=== PATIENT | female | born 1960 | race Caucasian/White ===

== ENCOUNTER → 2017-05-28 | Outpatient (CLI) | payer OTHER ==
[2017-05-28 08:29] LABS: ALBUMIN 3.8 g/dL (3.4-5.0); ALBUMIN/GLOBULIN RATIO 0.9 (1.0-1.7); GFR 57.4; POTASSIUM 4.2 mmol/L (3.5-5.1); TOTAL BILIRUBIN 0.5 mg/dL (0.2-1.0); TOTAL PROTEIN 7.9 g/dL (6.4-8.2)
[2017-05-28 09:54] LABS: BASO % 0 % (0-3); EOS % 1 % (0-3); HEMATOCRIT 40.9 % (36.0-47.0); HEMOGLOBIN 13.6 g/dL (12.0-15.5); LYMPH # 1.2 x10^3/uL (1.0-4.8); LYMPH % 23 % (24-48); MEAN CORPUSCULAR HEMOGLOBIN 32 pg (25-35); MEAN CORPUSCULAR HGB CONC 33 g/dL (31-37); MEAN CORPUSCULAR VOLUME 95 fL (79-100); MONO # 0.3 x10^3/uL (0.0-1.1); MONO % 6 % (0-9); NEUT # 3.7 x10^3uL (1.8-7.7); NEUT % 70 % (31-73); PLATELET COUNT 245 x10^3/uL (140-400); RED BLOOD COUNT 4.31 x10^6/uL (3.50-5.40); RED CELL DISTRIBUTION WIDTH 12.3 % (11.5-14.5); WHITE BLOOD COUNT 5.3 x10^3/uL (4.0-11.0)
== END | disposition home or self-care (01) ==
LOC: LAB 07:57
PROVIDERS: ATTEND Family Medicine
DX: E78.00 Pure hypercholesterolemia, unspecified (principal)
CPT/HCPCS: 36415; 80053; 80061; 82150; 83690; 85027

== ENCOUNTER → 2017-05-29 | Outpatient (CLI) | payer OTHER ==
[~2017-05-29] MED LIST: CRESTOR20 MG PO; DOXY100C2 PO; ESCITALOPRAM OX10 MG PO; ESTR1TAB15 PO
--- NOTE | 2017-05-29 08:37 | RAD ---
INDICATION: Abdominal pain. COMPARISON: None. TECHNIQUE: Grayscale and color ultrasound images obtained through the abdomen. FINDINGS: Aorta/IVC: Partially visualized without gross aneurysm. Pancreas: Visualized portions unremarkable. Liver: Echogenic mass within measuring 10 x 8 mm Gallbladder: No definite gallstones. Wall measures up to 3-4 mm Common Bile Duct: Not dilated. Right Kidney: No hydronephrosis. Left Kidney: No hydronephrosis. Spleen: Unremarkable. IMPRESSION: No bile duct dilation or gallstones. The gallbladder is partially contracted with the gallbladder wall borderline in thickness in some regions. Echogenic lesion within the liver. This has a nonspecific appearance and can be seen with causes such as hemangioma but other more worrisome liver lesions are also within the differential. A follow-up could be obtained to ensure no growth.
== END | disposition home or self-care (01) ==
LOC: US 07:30
PROVIDERS: ATTEND Family Medicine
DX: K76.9 Liver disease, unspecified (principal); D18.00 Hemangioma unspecified site
CPT/HCPCS: 76700

== ENCOUNTER → 2017-05-30 | Outpatient (CLI) | payer OTHER ==
[~2017-05-30] VITALS: Ht 162.6 cm; Wt 72.6 kg
[2017-05-30] MEDS: SINCALIDE 1.5 MCG in IV NORMAL SALINE 50ML 30 ML IV ONE (13:57)
--- NOTE | 2017-05-30 15:26 | RAD ---
EXAM: Nuclear hepatobiliary scan with ejection fraction. HISTORY: Right upper quadrant pain. TECHNIQUE: Serial static images are obtained of the liver and biliary system in a frontal projection following IV administration of 5.5 mCi of technetium-99m Choletec. After filling of the gallbladder, 1.5 mcg of sincalide were infused over 30 minutes and dynamic imaging continued over this period. The gallbladder ejection fraction was calculated. FINDINGS: There is prompt hepatic clearance of tracer from the blood pool. There is homogeneous distribution throughout the liver. There is normal filling of the gallbladder and normal emptying into the biliary system and small bowel. The gallbladder ejection fraction is 93.5% (normal >35%). IMPRESSION: 1. Normal gallbladder ejection fraction.
== END | disposition home or self-care (01) ==
LOC: NM 12:37
PROVIDERS: ATTEND Family Medicine
DX: R10.11 Right upper quadrant pain (principal); R11.0 Nausea
CPT/HCPCS: 78226; 96374; 96375; A9537; J2805

== ENCOUNTER → 2017-05-31 | Outpatient (CLI) | payer OTHER ==
[~2017-05-31] MED LIST changes: +IOHEXOL 240 MG/ML 50ML VIAL. PO ONE
[2017-05-31] MEDS: IOHEXOL 300 MG/ML 75 ML VIAL. IV ONE (13:00)
--- NOTE | 2017-05-31 15:04 | RAD ---
INDICATION: Right upper quadrant pain COMPARISON: Ultrasound 05/29/2017 TECHNIQUE: Axial CT images were obtained through the abdomen and pelvis with intravenous contrast. Coronal reformations were processed. FINDINGS: Coronary artery calcific atherosclerosis partially visualized. Mild distention distal esophagus versus tiny hiatal hernia. Calcific atherosclerosis throughout the vasculature, moderate. No intrahepatic bile duct dilation. Low attenuation adjacent to falciform ligament. Subcentimeter low-attenuation lesion right lobe of liver adjacent to gallbladder. Gallbladder is partially contracted. No peripancreatic edema. Spleen unremarkable. No hydronephrosis. Bladder is largely decompressed. No definite periappendiceal inflammation. No dilated loops of bowel to suggest obstruction. Degenerative changes spine. IMPRESSION: 1. No evidence of bowel obstruction, hydronephrosis or appendicitis. 2. Low-attenuation lesion of the liver which is too small to characterize on this exam. PQRS Compliance Statement: One or more of the following individualized dose reduction techniques were utilized for this examination: 1. Automated exposure control 2. Adjustment of the mA and/or kV according to patient size 3. Use of iterative reconstruction technique
== END | disposition home or self-care (01) ==
LOC: CT 10:18
PROVIDERS: ATTEND Family Medicine
DX: R10.11 Right upper quadrant pain (principal); I25.10 Atherosclerotic heart disease of native coronary artery without angina pectoris; K76.9 Liver disease, unspecified
CPT/HCPCS: 74177; Q9966

== ENCOUNTER → 2017-11-22 | Outpatient (CLI) | payer OTHER ==
[~2017-11-22] MED LIST changes: -IOHEXOL 240 MG/ML 50ML VIAL. PO ONE
[2017-11-22 07:56] LABS: ALBUMIN 3.7 g/dL (3.4-5.0); CREATININE 0.9 mg/dL (0.6-1.0); GFR 64.8; POTASSIUM 4.1 mmol/L (3.5-5.1); TOTAL BILIRUBIN 0.3 mg/dL (0.2-1.0); TOTAL PROTEIN 7.5 g/dL (6.4-8.2)
== END | disposition home or self-care (01) ==
LOC: LAB 07:31
PROVIDERS: ATTEND Family Medicine
DX: E78.4 Other hyperlipidemia (principal)
CPT/HCPCS: 36415; 80053; 80061

== ENCOUNTER → 2018-02-10 | Outpatient (CLI) | payer OTHER ==
--- NOTE | 2018-02-10 11:20 | RAD ---
Left wrist, 4 views, 02/10/2018: History: Left wrist contusion No fracture or dislocation is identified. There is a small degenerative type cyst in the lunate. There is mild soft tissue swelling. IMPRESSION: No acute bony abnormality is detected.
== END | disposition home or self-care (01) ==
LOC: RAD 09:50
PROVIDERS: ATTEND Family Medicine
DX: S60.212D Contusion of left wrist, subsequent encounter (principal); X58.XXXD Exposure to other specified factors, subsequent encounter
CPT/HCPCS: 73110

== ENCOUNTER → 2018-05-28 | Outpatient (CLI) | payer OTHER ==
[2018-05-28 08:38] LABS: ALBUMIN 3.6 g/dL (3.4-5.0); ALBUMIN/GLOBULIN RATIO 0.9 (1.0-1.7); CALCIUM 9.2 mg/dL (8.5-10.1); CREATININE 0.9 mg/dL (0.6-1.0); GFR 64.5; POTASSIUM 3.9 mmol/L (3.5-5.1); TOTAL BILIRUBIN 0.4 mg/dL (0.2-1.0); TOTAL PROTEIN 7.5 g/dL (6.4-8.2)
== END | disposition home or self-care (01) ==
LOC: LAB 08:03
PROVIDERS: ATTEND Family Medicine
DX: E78.4 Other hyperlipidemia (principal)
CPT/HCPCS: 36415; 80053; 80061

== ENCOUNTER → 2018-09-03 | Outpatient (CLI) | payer OTHER ==
--- NOTE | 2018-09-03 13:47 | RAD ---
DATE: 09/03/2018 EXAM: MAMMO KADEN SCREENING BILATERAL HISTORY: Routine screening COMPARISON: 11/30/2014 This study was interpreted with the benefit of Computerized Aided Detection (CAD). Breast Density: HETERO The breast parenchyma is heterogenously dense, which could reduce sensitivity of mammography. Breast parenchyma level C. FINDINGS: 2-D and 3-D tomosynthesis imaging was performed in CC and MLO projections. No new or enlarging breast densities are seen. Scattered microcalcifications are again noted in both breasts. The distribution suggests a benign etiology. Small to medium sized lymph nodes are present in both axillary regions. The largest of these on both sides measure approximately 11 mm in short axis dimension. More these are demonstrated on the current exam, likely due to technical factors. Clinical surveillance is suggested. IMPRESSION: There is no mammographic evidence of malignancy in either breast. BI-RADS CATEGORY: 2 BENIGN FINDING(S) RECOMMENDED FOLLOW-UP: 12M 12 MONTH FOLLOW-UP PQRS compliance statement: Patient information was entered into a reminder system with a target due date for the next mammogram. Mammography is a sensitive method for finding small breast cancers, but it does not detect them all and is not a substitute for careful clinical examination. A negative mammogram does not negate a clinically suspicious finding and should not result in delay in biopsying a clinically suspicious abnormality. "Our facility is accredited by the [employer] Mammography [employer]."
== END | disposition home or self-care (01) ==
LOC: MAMMO 08:50
PROVIDERS: ATTEND Family Medicine
DX: Z12.31 Encounter for screening mammogram for malignant neoplasm of breast (principal)
CPT/HCPCS: 77063; 77067

== ENCOUNTER → 2019-06-02 | Outpatient (CLI) | payer OTHER ==
[2019-06-02 10:05] LABS: BASO % 0 % (0-3); EOS # 0.1 x10^3/uL (0.0-0.7); EOS % 1 % (0-3); HEMATOCRIT 41.8 % (36.0-47.0); HEMOGLOBIN 14.1 g/dL (12.0-15.5); LYMPH # 1.4 x10^3/uL (1.0-4.8); LYMPH % 31 % (24-48); MEAN CORPUSCULAR HEMOGLOBIN 32 pg (25-35); MEAN CORPUSCULAR HGB CONC 34 g/dL (31-37); MEAN CORPUSCULAR VOLUME 94 fL (79-100); MONO # 0.3 x10^3/uL (0.0-1.1); MONO % 7 % (0-9); NEUT # 2.9 x10^3uL (1.8-7.7); NEUT % 61 % (31-73); PLATELET COUNT 280 x10^3/uL (140-400); RED BLOOD COUNT 4.46 x10^6/uL (3.50-5.40); RED CELL DISTRIBUTION WIDTH 12.6 % (11.5-14.5); WHITE BLOOD COUNT 4.7 x10^3/uL (4.0-11.0)
[2019-06-02 10:18] LABS: BACTERIA,URINE 0 /HPF (0-FEW); BILIRUBIN,URINE NEG (NEG); CLARITY,URINE HAZY; COLOR,URINE YELLOW; GLUCOSE,URINE NEG (NEG); NITRITE,URINE NEG (NEG); RBC,URINE OCC /HPF (0-2); SQUAMOUS EPITHELIAL CELL,UR OCC /LPF; UROBILINOGEN,URINE 0.2 mg/dL (0.2 mg/dL); WBC,URINE OCC /HPF (0-4)
[2019-06-02 10:19] LABS: ALBUMIN 4.2 g/dL (3.4-5.0); CREATININE 0.9 mg/dL (0.6-1.0); DIRECT BILIRUBIN 0.1 mg/dL (0.0-0.2); GFR 64.3; POTASSIUM 4.2 mmol/L (3.5-5.1); TOTAL BILIRUBIN 0.3 mg/dL (0.2-1.0); TOTAL PROTEIN 8.1 g/dL (6.4-8.2)
[2019-06-02 13:44] LABS: THYROID STIM HORMONE (TSH) 2.474 uIU/mL (0.358-3.740)
== END | disposition home or self-care (01) ==
LOC: LAB 09:41
PROVIDERS: ATTEND Family Medicine
DX: E78.01 Familial hypercholesterolemia (principal)
CPT/HCPCS: 36415; 80048; 80061; 80076; 81001; 82306; 82607; 83540; 83550; 84443; 85025

== ENCOUNTER → 2019-09-10 | Outpatient (CLI) | payer OTHER ==
--- NOTE | 2019-09-10 14:40 | RAD ---
DATE: 09/10/2019 1:22 PM EXAM: MAMMO KADEN SCREENING BILATERAL HISTORY: Screening mammogram COMPARISON: September 03, 2018. Bilateral CC and MLO views of the breasts were performed. Bilateral breast tomosynthesis was performed in CC and MLO projections. This study was interpreted with the benefit of Computerized Aided Detection (CAD). FINDINGS: Breast Density: SCATTERED The breast parenchyma shows scattered fibroglandular densities. Breast parenchyma level B Increased well-circumscribed mass within the right breast 12:00 position posterior depth approximately 5.3 cm from the nipple measures 0.7 cm. No left breast suspicious masses, microcalcifications or architectural distortion is present to suggest malignancy in either breast. The visualized axillae are unremarkable. IMPRESSION: Increased right breast mass 12:00 position. Recommend targeted right breast ultrasound to further evaluate. BI-RADS CATEGORY: 0 INCOMPLETE: NEEDS ADDITIONAL IMAGING EVALUATION AND/OR PRIOR MAMMOGRAMS FOR COMPARISON. RECOMMENDED FOLLOW-UP: ADD ADDITIONAL IMAGING The patient will be contacted to return for additional imaging and a supplemental report will follow. PQRS compliance statement: Patient information was entered into a reminder system. Mammography is a sensitive method for finding small breast cancers, but it does not detect them all and is not a substitute for careful clinical examination. A negative mammogram does not negate a clinically suspicious finding and should not result in delay in biopsying a clinically suspicious abnormality. "Our facility is accredited by the [employer] Mammography Program."
== END | disposition home or self-care (01) ==
LOC: MAMMO 12:33
PROVIDERS: ATTEND Family Medicine
DX: Z12.31 Encounter for screening mammogram for malignant neoplasm of breast (principal); N63.12 Unspecified lump in the right breast, upper inner quadrant
CPT/HCPCS: 77063; 77067

== ENCOUNTER → 2019-09-11 | Outpatient (CLI) | payer OTHER ==
--- NOTE | 2019-09-11 10:38 | RAD ---
DATE: 09/11/2019 10:25 AM EXAM: BREAST RIGHT HISTORY: Right breast abnormal mammogram COMPARISON: September 10, 2019 and September 03, 2018 mammograms. Ultrasound December 05, 2009. Targeted ultrasound of the right breast real-time. FINDINGS: Smoothly marginated right breast hypoechoic lesion 12:00 position 5 cm from the nipple measures approximately 0.5 x 0.4 x 0.7 cm. No posterior shadowing. Of note prior ultrasounds demonstrate similar-appearing lesions within the right breast. IMPRESSION: Hypoechoic smoothly marginated right breast mass, likely complicated cyst. BI-RADS CATEGORY: 3 PROBABLY BENIGN FINDING(S)-SHORT INTERVAL FOLLOW-UP SUGGESTED RECOMMENDED FOLLOW-UP: 6M 6 MONTH FOLLOW-UP. Recommend right breast mammographic views and right breast ultrasound. PQRS compliance statement: Patient information was entered into a reminder system with a target due date 6 months for the next right breast mammogram and ultrasound. Mammography is a sensitive method for finding small breast cancers, but it does not detect them all and is not a substitute for careful clinical examination. A negative mammogram does not negate a clinically suspicious finding and should not result in delay in biopsying a clinically suspicious abnormality. "Our facility is accredited by the [employer] Mammography [employer]."
== END | disposition home or self-care (01) ==
LOC: US 09:52
PROVIDERS: ATTEND Family Medicine
DX: N64.89 Other specified disorders of breast (principal); N63.10 Unspecified lump in the right breast, unspecified quadrant
CPT/HCPCS: 76641

== ENCOUNTER → 2019-12-14 | Outpatient (CLI) | payer OTHER ==
--- NOTE | 2019-12-14 18:17 | RAD ---
PROCEDURE: KNEE RIGHT 3V STUDY DATE: 12/14/2019 CLINICAL INDICATION / HISTORY: Right knee pain. TECHNIQUE: AP, lateral, and oblique views of the right knee. COMPARISON: None FINDINGS: The osseous structures are intact. The articular surfaces are smooth. The joint space is maintained. No intra-articular loose bodies. The alignment is within normal limits. The soft tissues are unremarkable. No obvious joint effusion. No radio-opaque foreign bodies are identified. IMPRESSION: No fracture or dislocation is identified. Electronically signed by: Frank Mora MD (12/14/2019 6:15 PM) [facility]
--- NOTE | 2019-12-15 07:53 | RAD ---
EXAM: CT right knee without IV contrast INDICATION: Right knee pain, mostly around the patellar region. TECHNIQUE: All CT scans performed at this facility utilize dose optimization techniques as appropriate to the exam, including the following: Automated exposure control and adjustment of the mA and/or KV according to patient size (this includes techniques or standardized protocols for targeted exams where dose is indication/reason for exam). COMPARISON: Right knee x-rays of December 14, 2019 FINDINGS: Osseous mineralization is normal with no fracture or aggressive appearing osseous lesions apparent. Alignment is notable for mild lateral patellar subluxation. Tibial tuberosity to trochlear groove (TT -TG) distance measures 1.6 cm. A benign bone island is present in the medial tibial tuberosity. No subchondral cystic changes apparent. The joint spaces are preserved and no joint effusion or loose bodies are apparent. Although soft tissue detail is limited on CT, but the ACL and PCL appear intact. The MCL and LCL also appear unremarkable. There is normal muscle bulk with no fatty infiltration or discrete soft tissue mass. IMPRESSION: Mild lateral patellar subluxation with a borderline increased tibial tuberosity to trochlear groove distance, at risk for patellar tracking abnormality. No significant degenerative changes, fracture, joint effusion or loose body. More detailed evaluation of articular cartilage and other soft tissue structures can be pursued with MRI as clinically warranted. Electronically signed by: Frank Mora MD (12/15/2019 7:50 AM) [facility]
== END | disposition home or self-care (01) ==
LOC: RAD 15:39
PROVIDERS: ATTEND Family Medicine
DX: S83.011A Lateral subluxation of right patella, initial encounter (principal); X58.XXXA Exposure to other specified factors, initial encounter; Y93.89 Activity, other specified; Y92.89 Other specified places as the place of occurrence of the external cause; Y99.8 Other external cause status
CPT/HCPCS: 73562; 73700

== ENCOUNTER → 2020-03-17 | Outpatient (CLI) | payer OTHER ==
--- NOTE | 2020-03-17 15:32 | RAD ---
DATE: 03/17/2020 2:00 PM EXAM: MAMMO KADEN DIAG RT HISTORY: Six-month follow-up probably benign right breast cyst initially recalled from screening. COMPARISON: Right breast ultrasound of 09/11/2019 and bilateral screening mammograms of 09/10/2019 and 09/03/2018. Right CC and MLO views of the breasts were obtained, in addition to magnification CC and ML views. Bilateral breast tomosynthesis was performed in CC and MLO projections. This study was interpreted with the benefit of Computerized Aided Detection (CAD). FINDINGS: Breast Density: HETERO The breast parenchyma Is heterogeneously dense, which could reduce sensitivity of mammography. Breast parenchyma level C Additional views right breast showed layering calcifications of the bottom of the cyst recalled from screening, consistent with benign milk of calcium additional scattered benign calcifications are noted with no dominant mass, suspicious calcifications or architectural distortion. Given the benign findings on mammography, additional imaging by ultrasound was deferred in favor of a return to screening which the patient will be due for in another 6 months. . IMPRESSION: Benign findings on mammography. BI-RADS CATEGORY: 2 BENIGN FINDING(S) RECOMMENDED FOLLOW-UP: 6M 6 MONTH FOLLOW-UP Annual screening mammography is recommended, unless clinically indicated sooner based on symptoms or change in physical exam. PQRS compliance statement: Patient information was entered into a reminder system with a target due date September 11, 2020 for the next mammogram. Mammography is a sensitive method for finding small breast cancers, but it does not detect them all and is not a substitute for careful clinical examination. A negative mammogram does not negate a clinically suspicious finding and should not result in delay in biopsying a clinically suspicious abnormality. "Our facility is accredited by the [employer] Mammography [employer]." BI-RADS 2 -- benign findings
== END | disposition home or self-care (01) ==
LOC: MAMMO 13:49
PROVIDERS: ATTEND Family Medicine
DX: R92.1 Mammographic calcification found on diagnostic imaging of breast (principal); N60.01 Solitary cyst of right breast
CPT/HCPCS: 77065; G0279; 77061

== ENCOUNTER → 2020-05-31 | Outpatient (CLI) | payer OTHER ==
[2020-05-31 08:42] LABS: BASO % 1 % (0-3); EOS # 0.1 x10^3/uL (0.0-0.7); EOS % 2 % (0-3); HEMATOCRIT 39.6 % (36.0-47.0); HEMOGLOBIN 13.4 g/dL (12.0-15.5); LYMPH # 1.9 x10^3/uL (1.0-4.8); LYMPH % 34 % (24-48); MEAN CORPUSCULAR HEMOGLOBIN 32 pg (25-35); MEAN CORPUSCULAR HGB CONC 34 g/dL (31-37); MEAN CORPUSCULAR VOLUME 94 fL (79-100); MONO # 0.4 x10^3/uL (0.0-1.1); MONO % 8 % (0-9); NEUT # 3.2 x10^3uL (1.8-7.7); NEUT % 56 % (31-73); PLATELET COUNT 272 x10^3/uL (140-400); RED BLOOD COUNT 4.21 x10^6/uL (3.50-5.40); RED CELL DISTRIBUTION WIDTH 13.1 % (11.5-14.5); WHITE BLOOD COUNT 5.7 x10^3/uL (4.0-11.0)
[2020-05-31 08:58] LABS: ALBUMIN 3.9 g/dL (3.4-5.0); ALBUMIN/GLOBULIN RATIO 1.1 (1.0-1.7); CALCIUM 9.2 mg/dL (8.5-10.1); GFR 56.7; POTASSIUM 3.4 mmol/L (3.5-5.1); TOTAL BILIRUBIN 0.3 mg/dL (0.2-1.0); TOTAL PROTEIN 7.3 g/dL (6.4-8.2)
[2020-05-31 15:55] LABS: THYROID STIM HORMONE (TSH) 2.963 uIU/mL (0.358-3.740)
== END | disposition home or self-care (01) ==
LOC: LAB 08:20
PROVIDERS: ATTEND Family Medicine
DX: E78.5 Hyperlipidemia, unspecified (principal)
CPT/HCPCS: 36415; 80053; 80061; 82306; 82607; 83540; 83550; 84443; 85025

== ENCOUNTER → 2021-01-09 | Outpatient (CLI) | payer OTHER ==
[2021-01-09 09:30] LABS: BASO % 1 % (0-3); EOS # 0.1 x10^3/uL (0.0-0.7); EOS % 2 % (0-3); HEMATOCRIT 40.5 % (36.0-47.0); HEMOGLOBIN 13.5 g/dL (12.0-15.5); LYMPH # 1.5 x10^3/uL (1.0-4.8); LYMPH % 30 % (24-48); MEAN CORPUSCULAR HEMOGLOBIN 32 pg (25-35); MEAN CORPUSCULAR HGB CONC 34 g/dL (31-37); MEAN CORPUSCULAR VOLUME 95 fL (79-100); MONO # 0.3 x10^3/uL (0.0-1.1); MONO % 7 % (0-9); NEUT # 2.9 x10^3uL (1.8-7.7); NEUT % 61 % (31-73); PLATELET COUNT 270 x10^3/uL (140-400); RED BLOOD COUNT 4.26 x10^6/uL (3.50-5.40); RED CELL DISTRIBUTION WIDTH 13.1 % (11.5-14.5); WHITE BLOOD COUNT 4.8 x10^3/uL (4.0-11.0)
[2021-01-09 09:43] LABS: ALBUMIN 3.8 g/dL (3.4-5.0); ALBUMIN/GLOBULIN RATIO 1.1 (1.0-1.7); CALCIUM 9.3 mg/dL (8.5-10.1); CREATININE 0.9 mg/dL (0.6-1.0); GFR 63.9; POTASSIUM 4.1 mmol/L (3.5-5.1); TOTAL BILIRUBIN 0.3 mg/dL (0.2-1.0); TOTAL PROTEIN 7.3 g/dL (6.4-8.2)
[2021-01-09 09:52] LABS: BILIRUBIN,URINE NEG (NEG); CLARITY,URINE CLEAR; COLOR,URINE YELLOW; GLUCOSE,URINE NEG (NEG); NITRITE,URINE NEG (NEG); UROBILINOGEN,URINE 0.2 mg/dL (0.2 mg/dL)
[2021-01-09 09:53] LABS: BACTERIA,URINE 0 /HPF (0-FEW); RBC,URINE OCC /HPF (0-2); SQUAMOUS EPITHELIAL CELL,UR FEW /LPF
[2021-01-09 20:28] LABS: THYROID STIM HORMONE (TSH) 1.71 uIU/mL (0.358-3.740)
== END ==
LOC: LAB 09:01
PROVIDERS: ATTEND Family Medicine
DX: R29.890 Loss of height (principal); K63.5 Polyp of colon; E55.9 Vitamin D deficiency, unspecified; E78.01 Familial hypercholesterolemia; E03.9 Hypothyroidism, unspecified; R35.1 Nocturia
CPT/HCPCS: 36415; 80053; 80061; 81001; 82306; 84443; 85025; 87086

== ENCOUNTER → 2021-01-20 | Outpatient (CLI) | payer OTHER ==
--- NOTE | 2021-01-20 10:59 | RAD ---
EXAM: Bilateral digital screening mammogram with tomosynthesis. HISTORY: 60-year-old female presents for screening mammography. TECHNIQUE: Full-field digital craniocaudal and mediolateral oblique 2D and 3D tomosynthesis images of both breasts are obtained for evaluation. Computer aided detection was applied. COMPARISON: 09/10/2019 BREAST PARENCHYMAL DENSITY: Level C - Heterogeneously dense. FINDINGS: There is no new suspicious mass, microcalcification or region of architectural distortion. There are multiple stable areas of nodularity and asymmetry within both breasts. There are few benign calcifications. IMPRESSION: BI-RADS Category 2: Benign finding(s). RECOMMENDATION: Annual mammography is recommended. If your mammogram demonstrates that you have dense breast tissue, which could hide abnormalities, and if you have other risk factors for breast cancer that have been identified, you might benefit from s upplemental screening tests that may be suggested by your ordering physician. Dense breast tissue, i n and of itself, is a relatively common condition. This information is not provided to cause undue c oncern, but rather to raise your awareness and to promote discussion with your physician regarding th e presence of other risk factors, in addition to dense breast tissue. A report of your mammography re sults will be sent to you and your physician. You should contact your physician if you have any ques tions or concerns regarding this report. Mammography is a sensitive method for finding small breast cancers, but it does not detect them all a nd is not a substitute for careful clinical examination. A negative mammogram does not negate a clin ically suspicious finding and should not result in delay in biopsying a clinically suspicious abnorma lity. PQRS compliance statement - Patient information was entered into a reminder system with a target due date for the next mammogram. "Our facility is accredited by the [employer] Mammography Program." Electronically signed by: Marlene Daly MD (01/20/2021 10:56 AM) [id number]
== END ==
LOC: MAMMO 09:56
PROVIDERS: ATTEND Family Medicine
DX: Z12.31 Encounter for screening mammogram for malignant neoplasm of breast (principal)
CPT/HCPCS: 77063; 77067

== ENCOUNTER → 2021-03-02 | Outpatient (CLI) | payer OTHER ==
--- NOTE | 2021-03-02 14:50 | RAD ---
EXAM: DUAL ENERGY X-RAY ABSORPTIOMETRY (DEXA). HISTORY: Postmenopausal screening. Vitamin D deficiency. FINDINGS: The lowest measured T-score is -0.7 in the lumbar spine, based on a bone mineral density of 1.092 g/cm^2. Refer to the worksheets for full detail. There has been a 4.9 percent decrease in density of the lumbar spine and 0.4 percent increase in dens ity of the right hip compared to a study performed 11/30/2014. IMPRESSION: 1. Normal. Bone mineral density yields a T-score of -1.0 or greater. Fracture risk is low. 2. FRAX report: Not calculated. METHODOLOGY: Dual energy x-ray absorptiometry was performed to measure bone mineral density. The foll owing analysis is based on the 2019 Official Positions of the International Society for Clinical Dens itometry: Measurements of the hips and the average of L1-L4 are preferred. When the spine and/or hip cannot be feasibly measured or interpreted, or in the setting of hyperparathyroidism, distal radial bone minera l density may be measured. The lumbar spine T-score is based on the average bone mineral density of L1-L4. In the setting of art ifact or anatomic abnormality, some lumbar levels may be excluded, and the remaining levels used for calculation. A single lumbar level is not used for diagnosis, and if only a single level is available for assessment, another anatomic site will be used to assign a diagnosis. The hip T-score is based on the bone mineral density measurement of the femoral neck or total proxima l femur of either side, whichever is lowest. Bilateral mean values are not used for diagnosis. The forearm T-score is derived from 33% of the distal radius of the nondominant forearm. Electronically signed by: Marlene Daly MD (03/02/2021 2:47 PM) [id number]
== END ==
LOC: DXRAD 08:53
PROVIDERS: ATTEND Family Medicine
DX: E55.9 Vitamin D deficiency, unspecified (principal)
CPT/HCPCS: 77080

== ENCOUNTER → 2021-05-31 | Outpatient (CLI) | payer OTHER | LOC: LAB 07:57 | PROVIDERS: ATTEND Family Medicine | DX: E78.01 Familial hypercholesterolemia (principal) | CPT/HCPCS: 80061 ==